=== PATIENT | female | born 2000 | race African-American/Black ===

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

== ENCOUNTER 2018-02-10 12:38 | Emergency (ER) | payer MEDICAID ==
[~2018-02-10] VITALS: Ht 154.9 cm; Wt 71.8 kg
[2018-02-10 13:30] LABS: BASOPHILS # (AUTO) 0.03 x10^3/uL (0-0.3); BASOPHILS % (AUTO) 0 % (0-1); EOSINOPHILS # (AUTO) 0.08 x10^3/uL (0-0.8); EOSINOPHILS % (AUTO) 1 % (1-7); LYMPHOCYTES # (AUTO) 2.77 x10^3/uL (1-6.1); LYMPHOCYTES % (AUTO) 36 % (22-44); MD NO; MEAN CORPUSCULAR HEMOGLOBIN 29.1 pg (27.0-34.8); MEAN CORPUSCULAR HGB CONC 32.9 g/dL (32.4-35.8); MEAN CORPUSCULAR VOLUME 88.4 fL (80-100); MEAN PLATELET VOLUME 8.1 fL (7.4-10.4); MONOCYTES # (AUTO) 0.52 x10^3/uL (0-1.4); MONOCYTES % (AUTO) 7 % (2-9); NEUTROPHILS % (AUTO) 56 % (42-75); PLATELET COUNT 234 x10^3/uL (130-400); RED BLOOD COUNT 4.62 x10^6/uL (3.82-5.3); RED CELL DISTRIBUTION WIDTH 14.1 % (9.6-15.2)
[2018-02-10 13:42] LABS: ALANINE AMINOTRANSFERASE 32 U/L (12-78); ALBUMIN 3.3 g/dL (3.4-5.0); ANION GAP 8 mmol/L (5-15); CALCIUM 8.8 mg/dL (8.5-10.1); CHLORIDE 107 mmol/L (98-107)
[2018-02-10 13:44] LABS: ALKALINE PHOSPHATASE 47 U/L (45-117); BILIRUBIN,TOTAL 0.7 mg/dL (0.2-1.0); CREATININE 0.63 mg/dL (0.55-1.02); TOTAL PROTEIN 7.2 g/dL (6.4-8.2)
[2018-02-10 13:52] LABS: CULTURE INDICATED? YES; MICROSCOPIC INDICATED
[2018-02-10 14:43] VITALS: BP 102/62
== END 2018-02-10 14:52 | disposition home or self-care (01) ==
LOC: ED 14:46
DX: O26.892 Other specified pregnancy related conditions, second trimester (principal); Z3A.18 18 weeks gestation of pregnancy; R10.10 Upper abdominal pain, unspecified; R10.30 Lower abdominal pain, unspecified
CPT/HCPCS: 36415; 76700; 80053; 81001; 83690; 85025; 87086; 99284

== ENCOUNTER 2019-09-13 20:30 | Emergency (ER) | payer MEDICAID ==
[~2019-09-13] VITALS: Ht 160 cm; Wt 71.9 kg
[~2019-09-13 20:30] MED LIST changes: -OMEP10CA4 PO; +OMEP10CA5 PO
--- NOTE | 2019-09-13 20:50 | NUR ---
PT INSTRUCTED ON CLEAN CATCH URINE AND SAMPLE SENT TO LAB.
[2019-09-13 21:07] LABS: MICROSCOPIC INDICATED
--- NOTE | 2019-09-13 21:07 | NUR ---
PT TO ROOM FROM LOBBY
[2019-09-13 21:13] LABS: MEAN CORPUSCULAR HEMOGLOBIN 29.2 pg (27.0-34.8); MEAN CORPUSCULAR HGB CONC 32.7 g/dL (32.4-35.8); MEAN CORPUSCULAR VOLUME 89.2 fL (80-100); MEAN PLATELET VOLUME 7.3 fL (7.4-10.4); PLATELET COUNT 277 x10^3/uL (130-400); RED BLOOD COUNT 4.66 x10^6/uL (3.82-5.3); RED CELL DISTRIBUTION WIDTH 13.1 % (9.6-15.2)
[2019-09-13 21:23] LABS: ALANINE AMINOTRANSFERASE 24 U/L (12-78); ALBUMIN 4.1 g/dL (3.4-5.0); ANION GAP 6 mmol/L (5-15); CHLORIDE 108 mmol/L (98-107); CREATININE 0.79 mg/dL (0.55-1.02)
[2019-09-13] MEDS ORDERED: FAMOTIDINE 20 MG/2 ML IVPush ONE (21:30)
[2019-09-13] MEDS ORDERED: ONDANSETRON 2MG/ML, 2ML IVPush ONE (21:30)
[2019-09-13] MEDS ORDERED: SODIUM CHLORIDE FLUSH 10ML SYR IVF ONE (21:30)
[2019-09-13] MEDS ORDERED: SODIUM CHLORIDE 0.9% 1,000ML IVBOLUS ONE (21:30)
[2019-09-13] MEDS ORDERED: ONDANSETRON 2MG/ML, 2ML ONE (21:33)
[2019-09-13] MEDS ORDERED: FAMOTIDINE 20 MG/2 ML ONE (21:34)
[2019-09-13 21:38] LABS: MD YES
[2019-09-13 21:40] LABS: ALKALINE PHOSPHATASE 73 U/L (45-117); BILIRUBIN,TOTAL 0.7 mg/dL (0.2-1.0); TOTAL PROTEIN 7.9 g/dL (6.4-8.2)
[2019-09-13 21:42] LABS: <PLATELET ESTIMATE> ADEQUATE; <RBC MORPHOLOGY> NORMAL; EOS% (MANUAL) 1 % (1-7); LYMPH#(MANUAL) 2.42 x10^3/uL (1-6.1); LYMPHS% (MANUAL) 24 % (22-44); MONOS#(MANUAL) 0.81 x10^3/uL (0.3-2.7); MONOS% (MANUAL) 8 % (2-9); SEG#(MANUAL) 6.77 x10^3/uL (1.8-8); SEGS% (MANUAL) 67 % (42-75)
[2019-09-13 21:43] LABS: SMALL PLATELETS 1+
--- NOTE | 2019-09-13 22:02 | NUR ---
Pt to us.
--- NOTE | 2019-09-13 22:34 | NUR ---
Back from us. No immediate needs from pt or family. Call light within reach. Awaiting results.
[2019-09-13 22:41] VITALS: BP 106/51
--- NOTE | 2019-09-13 22:54 | NUR ---
Pt given food and water per request and md verbal ok. Tolerated po intake well. No other immediate needs.
== END 2019-09-13 23:15 | disposition home or self-care (01) ==
LOC: ED 22:38
DX: O21.1 Hyperemesis gravidarum with metabolic disturbance (principal); O21.8 Other vomiting complicating pregnancy; R10.9 Unspecified abdominal pain; Z3A.01 Less than 8 weeks gestation of pregnancy
CPT/HCPCS: 36415; 76801; 80053; 81001; 84702; 85025; 86901; 87086; 96374; 96375; 99284; J2405; J3490; J7030

== ENCOUNTER 2019-09-29 20:32 | Emergency (ER) | payer MEDICAID ==
[~2019-09-29] VITALS: Ht 157.5 cm; Wt 71.9 kg
[2019-09-29 20:35] VITALS: BP 115/58
[2019-09-29] MEDS ORDERED: ONDANSETRON ODT 4 MG ONE (20:40)
--- NOTE | 2019-09-29 20:53 | NUR ---
PT TO ROOM FROM LOBBY
[2019-09-29] MEDS ORDERED: ONDANSETRON ODT 4 MG PO ONE (21:00)
[2019-09-29] MEDS ORDERED: SODIUM CHLORIDE FLUSH 10ML SYR IVF ONE (21:00)
[2019-09-29] MEDS ORDERED: ONDANSETRON 2MG/ML, 2ML IVPush ONE (21:00)
[2019-09-29] MEDS ORDERED: FAMOTIDINE 20 MG/2 ML IVPush ONE (21:00)
[2019-09-29] MEDS ORDERED: SODIUM CHLORIDE 0.9% 1,000ML IVBOLUS ONE (21:00)
[2019-09-29 21:09] LABS: ALBUMIN 3.7 g/dL (3.4-5.0); ANION GAP 10 mmol/L (5-15); CALCIUM 9.2 mg/dL (8.5-10.1); CHLORIDE 110 mmol/L (98-107)
[2019-09-29 21:28] LABS: ALANINE AMINOTRANSFERASE 28 U/L (12-78); ALKALINE PHOSPHATASE 60 U/L (45-117); BILIRUBIN,TOTAL 0.8 mg/dL (0.2-1.0); CREATININE 0.56 mg/dL (0.55-1.02); TOTAL PROTEIN 7.5 g/dL (6.4-8.2)
[2019-09-29 21:31] LABS: BASOPHILS # (AUTO) 0.04 x10^3/uL (0-0.3); BASOPHILS % (AUTO) 0 % (0-1); EOSINOPHILS # (AUTO) 0.02 x10^3/uL (0-0.8); EOSINOPHILS % (AUTO) 0 % (1-7); LYMPHOCYTES # (AUTO) 1.91 x10^3/uL (1-6.1); LYMPHOCYTES % (AUTO) 19 % (22-44); MD SCAN; MEAN CORPUSCULAR HEMOGLOBIN 29.5 pg (27.0-34.8); MEAN CORPUSCULAR HGB CONC 33.2 g/dL (32.4-35.8); MEAN CORPUSCULAR VOLUME 88.9 fL (80-100); MEAN PLATELET VOLUME 7.5 fL (7.4-10.4); MONOCYTES # (AUTO) 0.57 x10^3/uL (0-1.4); MONOCYTES % (AUTO) 6 % (2-9); NEUTROPHILS # (AUTO) 7.32 x10^3/uL (1.8-8.0); NEUTROPHILS % (AUTO) 74 % (42-75); PLATELET COUNT 259 x10^3/uL (130-400); RED BLOOD COUNT 4.56 x10^6/uL (3.82-5.3); RED CELL DISTRIBUTION WIDTH 13.8 % (9.6-15.2)
[2019-09-29] MEDS ORDERED: FAMOTIDINE 20 MG/2 ML ONE (21:43)
[2019-09-29] MEDS ORDERED: ONDANSETRON 2MG/ML, 2ML ONE (21:43)
--- NOTE | 2019-09-29 22:38 | NUR ---
PT PROVIDED WITH URINE CUP AND INSTRUCTIONS ON ITS USE. VERBALIZES UNDERSTANDING. TO RESTROOM AT THIS TIME.
[2019-09-29 23:00] LABS: MICROSCOPIC NOT IND
== END 2019-09-29 23:38 | disposition home or self-care (01) ==
LOC: ED 23:28
DX: O21.9 Vomiting of pregnancy, unspecified (principal); R42 Dizziness and giddiness; K21.9 Gastro-esophageal reflux disease without esophagitis; Z3A.08 8 weeks gestation of pregnancy
CPT/HCPCS: 36415; 80053; 81003; 83690; 84702; 85025; 96361; 96374; 96375; 99284; J2405; J3490; J7030; Q0162

== ENCOUNTER 2019-10-26 20:53 | Emergency (ER) | payer MEDICAID ==
[~2019-10-26] VITALS: Ht 160 cm; Wt 71.7 kg
--- NOTE | 2019-10-26 21:12 | NUR ---
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 PT WITH COVID-LIKE REPORTED SYMPTOMS, DISCUSSED SYMPTOMS WITH DR. AVILA, AGREED PT SHOULD BE COVID R/O AREA IN ER, NO VISITORS ALLOWED PER CURRENT POLICY. EXPLAINED TO PT, PT AND SIGNIFICANT OTHER, AFTER MUCH DISCUSSION, AGREED TO POC. SIGNIFICANT OTHER AND CHILD LEFT. PT WAS TAKEN TO ROOM, AMBULATORY WITH STEADY GAIT WITH OUTBOARD MOTORS EXPERIMENTAL MECHANIC.
[2019-10-26] MEDS ORDERED: MAALOX/HYOSCYAMINE/LIDOCAINE 45 ML BTL ONE (21:40)
[2019-10-26] MEDS ORDERED: ONDANSETRON 2MG/ML, 2ML ONE (21:41)
--- NOTE | 2019-10-26 21:58 | NUR ---
Patient presents to ER c/o nausea, low abd pain, acid reflux, dry mouth, sore throat, and dehydration x1 week. Symptoms have been worsening. Unknown if fevers. Patient was checked by OB RV REPAIR TECHNICIAN. Patient is in NAD. Respirations even and unlabored.
[2019-10-26] MEDS ORDERED: SODIUM CHLORIDE 0.9% 1,000ML IVBOLUS ONE (22:00)
[2019-10-26] MEDS ORDERED: SODIUM CHLORIDE FLUSH 10ML SYR IVF ONE (22:00)
[2019-10-26] MEDS ORDERED: MAALOX/HYOSCYAMINE/LIDOCAINE 45 ML BTL PO ONE (22:00)
[2019-10-26] MEDS ORDERED: ONDANSETRON 2MG/ML, 2ML IVPush ONE (22:00)
[2019-10-26 22:17] LABS: ALBUMIN 3.2 g/dL (3.4-5.0); ANION GAP 6 mmol/L (5-15); CALCIUM 8.4 mg/dL (8.5-10.1); CHLORIDE 109 mmol/L (98-107)
[2019-10-26 22:23] LABS: BASOPHILS # (AUTO) 0.02 x10^3/uL (0-0.1); BASOPHILS % (AUTO) 0 % (0-1); EOSINOPHILS # (AUTO) 0.09 x10^3/uL (0-0.4); EOSINOPHILS % (AUTO) 1 % (1-7); LYMPHOCYTES # (AUTO) 2.63 x10^3/uL (1-3.4); LYMPHOCYTES % (AUTO) 31 % (22-44); MD NO; MEAN CORPUSCULAR HEMOGLOBIN 29.6 pg (27.0-34.8); MEAN CORPUSCULAR HGB CONC 33.2 g/dL (32.4-35.8); MEAN CORPUSCULAR VOLUME 89.1 fL (80-100); MEAN PLATELET VOLUME 7.7 fL (7.4-10.4); MONOCYTES # (AUTO) 0.45 x10^3/uL (0.2-0.8); MONOCYTES % (AUTO) 5 % (2-9); NEUTROPHILS # (AUTO) 5.26 x10^3/uL (1.8-6.8); NEUTROPHILS % (AUTO) 62 % (42-75); PLATELET COUNT 239 x10^3/uL (130-400); RED BLOOD COUNT 4.24 x10^6/uL (3.82-5.3); RED CELL DISTRIBUTION WIDTH 13.8 % (9.6-15.2)
[2019-10-26 22:36] LABS: ALANINE AMINOTRANSFERASE 17 U/L (12-78); ALKALINE PHOSPHATASE 49 U/L (45-117); BILIRUBIN,TOTAL 0.7 mg/dL (0.2-1.0); CREATININE 0.55 mg/dL (0.55-1.02); TOTAL PROTEIN 6.7 g/dL (6.4-8.2)
[2019-10-26 22:51] VITALS: BP 112/80
[2019-10-27 00:39] LABS: MICROSCOPIC NOT IND
--- NOTE | 2019-10-27 01:19 | NUR ---
Patient given discharge instructions and they have confirmed that they understand the instructions. Patient refused last set of vitals as daughter was asleep and all monitoring was taken off. Patient ambulatory with steady gait. Addendum: 10/27/19 at 0134 by YEVGENIY NOTE COMPLETED BY THIS RN, NENA DENNIS RN. PATIENT DISCHARGED BY [facility]
== END 2019-10-27 01:39 | disposition home or self-care (01) ==
LOC: ED 22:03
DX: O26.891 Other specified pregnancy related conditions, first trimester (principal); E86.0 Dehydration; R07.89 Other chest pain; R11.2 Nausea with vomiting, unspecified; R00.0 Tachycardia, unspecified; Z3A.12 12 weeks gestation of pregnancy
CPT/HCPCS: 36415; 76801; 80053; 81003; 83690; 84702; 85025; 86901; 93005; 96374; 99285; J2405; J7030